=== PATIENT | female | born 1975 | race Caucasian/White ===

== ENCOUNTER → 2020-09-04 | Outpatient (CLI) | payer BC | LOC: EXRD 08:30 | DX: E04.1 Nontoxic single thyroid nodule (principal) | CPT/HCPCS: 76536 ==

== ENCOUNTER → 2020-09-14 | Outpatient (CLI) | payer BC ==
[2020-09-14 09:22] LABS: HEMOGLOBIN 14.5 gm/dl (12.3-15.3); RED BLOOD COUNT 4.97 M/UL (4.00-5.10); WHITE BLOOD COUNT 8.1 K/UL (4.5-11.0)
[2020-09-14 09:47] LABS: BUN/CREATININE RATIO 18 (0-10)
[2020-09-15 07:12] LABS: VITAMIN D, 25-HYDROXY 33.3 ng/mL (30.0-100.0)
[2020-09-15 08:13] LABS: THYROXINE (T4) 6.9 ug/dL (4.5-12.0)
== END ==
LOC: LAB 08:43
PROVIDERS: Nurse Practitioner
DX: E03.9 Hypothyroidism, unspecified (principal); E55.9 Vitamin D deficiency, unspecified; R53.82 Chronic fatigue, unspecified; I10 Essential (primary) hypertension; E78.5 Hyperlipidemia, unspecified
CPT/HCPCS: 36415; 80053; 80061; 81001; 84436; 84443; 84480; 85025

== ENCOUNTER → 2021-10-16 | Outpatient (CLI) | payer BC | LOC: EXRD 13:24 | DX: E04.2 Nontoxic multinodular goiter (principal) | CPT/HCPCS: 76536 ==